=== PATIENT | male | born 1955 | race Caucasian/White ===

== ENCOUNTER 2017-06-25 14:36 | Emergency (ER) | payer OTHER ==
[~2017-06-25] VITALS: Ht 185.4 cm; Wt 97.1 kg
[~2017-06-25 14:36] MED LIST: NAPROSYN500 MG PO; NORCO 5/3251 TABLET PO; PERCOCET 5/31 TABLET PO
[2017-06-25] MEDS ORDERED: PERCOCET 5/31 TABLET PO (17:08)
[2017-06-25] MEDS ORDERED: FLEXERIL10 MG PO (17:12)
[2017-06-25 17:22] VITALS: BP 126/79
== END 2017-06-25 17:23 | disposition home or self-care (01) ==
LOC: EME 14:36
DX: S22.31XA Fracture of one rib, right side, initial encounter for closed fracture (principal); W18.30XA Fall on same level, unspecified, initial encounter; Y93.89 Activity, other specified; Z88.6 Allergy status to analgesic agent; Z88.5 Allergy status to narcotic agent
CPT/HCPCS: 71100; 99281; 99284; J3010